=== PATIENT | male | born 1985 | race African-American/Black ===

== ENCOUNTER 2018-04-29 06:03 | Day surgery (SDC) | payer OTHER ==
[2018-03-25 13:28] VITALS: BMI 38.7
[2018-04-29] MEDS ORDERED: BUPIVACAINE HCL 0.25% 125 MG/50 ML VIAL ONE (07:10)
[2018-04-29] MEDS ORDERED: LIDOCAINE HCL 2% (20ML MULTI-DOSE VIAL) NR ONE (07:11)
[2018-04-29] MEDS ORDERED: PROPOFOL 20 ML ONE ×3 (07:20→07:45)
[2018-04-29] MEDS ORDERED: SUCCINYLCHOLINE CHLORIDE 200 MG/10 ML VIAL ONE (07:21)
[2018-04-29] MEDS ORDERED: MIDAZOLAM HCL 2 MG/2 ML SINGLE DOSE VIAL ONE (07:21)
[2018-04-29] MEDS ORDERED: ONDANSETRON 4 MG/2 ML VIAL ONE (07:59)
[2018-04-29] MEDS ORDERED: DEXAMETHASONE SOD PHOSPHATE 4 MG/1 ML VIAL ONE (07:59)
[2018-04-29] MEDS ORDERED: BUPIVACAINE HCL/PF 0.25% (2.5MG/ML) 10 ML VIAL IJ ONE (08:09)
[2018-04-29 09:55] VITALS: TEMP 97.4
[2018-04-29] MEDS ORDERED: oxyCODONE HCL 5 MG TABLET PO PRN (10:19)
[2018-04-29] MEDS ORDERED: ONDANSETRON 4 MG/2 ML VIAL IVPUSH PRN (10:19)
[2018-04-29] MEDS ORDERED: LACTATED RINGERS SOLUTION 1,000 ML IV SCH (10:30)
[2018-04-29 10:56] VITALS: BP 129/80; PULSE 89
--- NOTE | 2018-04-30 16:34 | OP ---
DATE OF OPERATION: 04/29/2018 PREOPERATIVE DIAGNOSIS: Right carpal tunnel syndrome. POSTOPERATIVE DIAGNOSIS: Right carpal tunnel syndrome. OPERATIVE PROCEDURE: Right endoscopic carpal tunnel release. ANESTHESIA: General. COMPLICATIONS: None. ESTIMATED BLOOD LOSS: Minimal. INDICATION FOR PROCEDURE: The patient is a 32-year-old male with the above finding, indicated for operative treatment. Risks, benefits, and alternatives were discussed with the patient at length. Proper informed consent was obtained. PROCEDURE: After proper identification of the patient and correct operative site, patient brought to the operating room, placed supine on the operative table. Prominences were well padded. General anesthesia provided by the anesthesiologist adequate for the procedure. Right upper extremity was prepped and draped in the usual sterile fashion. Superficial landmarks were drawn on the skin. Esmarch was used to exsanguinate the right upper extremity. Tourniquet was inflated to 250 mmHg. A transverse incision was made over the proximal wrist crease. Incision was taken sharply through the skin with blunt and sharp dissection through the subcutaneous tissues. Full-thickness flap of the antebrachial fascia was developed, and the carpal canal was entered with an elevator. Soft tissue was freed from the undersurface of the transcarpal ligament. Hamate finder/dilator was used to prepare the canal, and the MicroAire endoscopic carpal tunnel release system was used and inserted to the distal edge of the transcarpal ligament. At all times throughout the procedure, excellent visualization was achieved, and at no time was any soft tissue allowed to interpose between the blade and the undersurface of the transcarpal ligament. Blade was deployed, and the transcarpal ligament was divided. The distal 4 cm of the antebrachial fascia were divided under direct visualization with the mini-open technique. This provided complete release of the median nerve at the wrist. Patient was reversed from anesthesia after repairing the wound with a 4-0 Monocryl suture. Sterile dressings were applied. Patient was brought to Recovery in stable condition. He tolerated the procedure well. MALCOLM CARREON M.D. [id number]
== END 2018-04-29 11:00 | disposition home or self-care (01) ==
LOC: FASU 06:03
PROVIDERS: ATTEND Orthopaedic Surgery Hand Surgery
PROC: 01N54ZZ Release Median Nerve, Percutaneous Endoscopic Approach (ICD-10-PCS; principal; 2018-04-29 07:30)
DX: G56.01 Carpal tunnel syndrome, right upper limb (principal)